=== PATIENT | female | born 1950 | race Caucasian/White ===

== ENCOUNTER 2016-09-08 07:56 | Day surgery (SDC) | payer BC ==
[~2016-09-08 07:56] MED LIST: Buffered Lidocaine 1% SYRIN* 3 ML/SYR SYRINGE INTRADERM ONE; Dexamethasone IV* 4 MG/ML 1 ML (4 MG) IV SLOW PU ONE; DiMENhydriNATE IV* 50 MG/ML VIAL IV PUSH ONE; Famotidine IV* 10 MG/ML 2 ML (20 mg) IV ONE; HYDROmorphone* 1 MG/ML 1 ML SYR ONE; Midazolam* 1 MG/ML 2 ML VIAL (2 MG) ONE; fentaNYL* 50 MCG/ML 2 ML VIAL (100 MCG VIAL) ONE
[2016-09-08] MEDS ORDERED: Ondansetron INJ* 2 MG/ML VIAL ONE (08:08)
[2016-09-08] MEDS ORDERED: Propofol* 10 MG/ML 20 ML BTL IV PUSH ONE (08:08)
[2016-09-08] MEDS ORDERED: Lidocaine 2% PF * 5 ML VIAL ONE (08:08)
[2016-09-08] MEDS ORDERED: Ketorolac INJ* 30 MG/ML 1 ML VIAL ONE (08:08)
[2016-09-08] MEDS ORDERED: Famotidine IV* 10 MG/ML 2 ML (20 mg) ONE (08:13)
[2016-09-08] MEDS ORDERED: Dexamethasone IV* 4 MG/ML 1 ML (4 MG) ONE (08:13)
[2016-09-08] MEDS ORDERED: DiMENhydriNATE IV* 50 MG/ML VIAL ONE (08:47)
[2016-09-08] MEDS ORDERED: HYDROmorphone* 1 MG/ML 1 ML SYR IV PRN (08:58)
[2016-09-08] MEDS ORDERED: PROCHLORPERAZINE INJ 5 MG/ML 2 ML VIAL IV PRN (08:58)
[2016-09-08] MEDS ORDERED: DiMENhydriNATE IV* 50 MG/ML VIAL IV PUSH PRN (08:58)
[2016-09-08] MEDS ORDERED: fentaNYL* 50 MCG/ML 2 ML VIAL (100 MCG VIAL) IV PRN (08:58)
[2016-09-08] MEDS ORDERED: Ondansetron INJ* 2 MG/ML VIAL IV PRN (08:58)
[2016-09-08] MEDS ORDERED: Ferric Subsulfate* 8 ML BTL ONE (09:00)
[2016-09-08] MEDS ORDERED: Acetic Acid 0.25%* 250 ML BTL ONE (09:01)
[2016-09-08] MEDS ORDERED: Iodine Strong (LUGOL'S)* 14 ML BTL ONE (09:01)
[2016-09-08] MEDS ORDERED: DiMENhydriNATE IV* 50 MG/ML VIAL IV PUSH ONE (09:04)
[2016-09-08] MEDS ORDERED: HYDROmorphone* 1 MG/ML 1 ML SYR ONE (09:43)
[2016-09-08 11:39] VITALS: BP 111/71
--- NOTE | 2016-09-16 00:28 | OP ---
DATE OF OPERATION: 09/08/16 - [facility] DATE OF : 54 SURGEON: Frank Boston MD ANESTHESIOLOGIST: Kailash Santiago MD ANESTHESIA: General anesthetic with endotracheal intubation. 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 OPERATIVE PROCEDURE: Colposcopy and a loop electrocautery excision procedure. ESTIMATED BLOOD LOSS: None. SPECIMEN SENT TO PATHOLOGY: LEEP cervical biopsy. FLUIDS: She received 1300 cc of IV fluids. URINE OUTPUT: None. FINDINGS: External genitalia was within normal limits. The colposcopy was adequate. There were no acetowhite lesions noted on the cervix and vaginal mucosa was also noted to be within normal limits colposcopically. DESCRIPTION OF PROCEDURE: The patient was taken to the operating room, where she was placed on the operating table where general anesthetic with endotracheal intubation was obtained without difficulty. She was then placed in the dorsal lithotomy position, prepped and draped in normal sterile fashion. At this point, a coated speculum was inserted into the patient's vagina, I proceeded with a colposcopy. Acetic acid was applied to the cervix, colposcopy was then performed and findings were noted as above. The colposcopy was deemed to be adequate. After the colposcope was removed, I then proceeded to do a LEEP biopsy of the cervix using a LEEP electrode at a setting of 50 pure cut. The electrode was charged and biopsy was obtained. Biopsy was then sent to pathology. The bed biopsy was obtained at the cervix was coagulated with a ball electrode. The cervix was noted to be completely hemostatic. At this point, all the instruments were removed from the patient's vagina. Sponge , lap, and needle counts were correct x2. She was then transferred to recovery room area in stable condition. [id number]/[facility] #: [id number] HEALTH SYSTEMJennifer
== END 2016-09-08 11:39 | disposition home or self-care (01) ==
LOC: OR 07:56
PROVIDERS: ATTEND Obstetrics & Gynecology
DX: N87.0 Mild cervical dysplasia (principal); Z87.891 Personal history of nicotine dependence; J45.909 Unspecified asthma, uncomplicated
CPT/HCPCS: 88307; 88342; A9270-GY; J1100; J1170; J1240; J1885; J2250; J2405; J2704; J3010